=== PATIENT | male | born 1980 ===

== ENCOUNTER 2020-09-27 13:57 | Emergency (ER) | payer MEDICAID ==
[~2020-09-27] VITALS: Ht 177.8 cm; Wt 63.1 kg
[2020-09-27 14:05] VITALS: BP 119/87
--- NOTE | 2020-09-27 14:42 | NUR ---
PT DECIDED NOT TO BE SEEN
== END 2020-09-27 14:44 | disposition left against medical advice (07) ==
LOC: ED 14:38
DX: Z20.2 Contact with and (suspected) exposure to infections with a predominantly sexual mode of transmission (principal); Z53.21 Procedure and treatment not carried out due to patient leaving prior to being seen by health care provider
CPT/HCPCS: 99281

== ENCOUNTER 2021-06-15 01:58 | Emergency (ER) | payer MEDICAID ==
[~2021-06-15] VITALS: Ht 177.8 cm; Wt 74.0 kg
--- NOTE | 2021-06-15 02:07 | NUR ---
NIL for triage
[2021-06-15 02:15] VITALS: BP 133/89
== END 2021-06-15 02:52 | disposition left against medical advice (07) ==
LOC: ED 02:00
DX: R21 Rash and other nonspecific skin eruption (principal); Z53.21 Procedure and treatment not carried out due to patient leaving prior to being seen by health care provider